=== PATIENT | male | born 1950 | race Caucasian/White ===

== ENCOUNTER → 2019-09-16 16:55 | Inpatient (IN) | payer OTHER, MEDICAID ==
[2019-09-05 20:35] VITALS: BP 137/78
[2019-09-05 20:37] VITALS: BP 137/78
[2019-09-05 20:38] VITALS: BP 137/78
[2019-09-05 21:04] LABS: FREE T4 1.19 ng/dL (0.76-1.46); FREE THYROXINE INDEX 3.1 ug/dL (1.4-4.5); T4(THYROXINE) 7.8 ug/dL (4.7-13.3)
[2019-09-05 21:13] LABS: T3 TOTAL 0.54 ng/mL
[2019-09-05 21:50] LABS: PLATELET COUNT 329 x10^3mcL (130-400); RED CELL DISTRIBUTION WIDTH 14.5 % (11.5-14.5)
[2019-09-05 21:51] LABS: BASOPHIL % 0 % (0-2)
[2019-09-05 22:41] LABS: PHOSPHOROUS 3.6 mg/dL (2.5-4.9)
[2019-09-05 23:05] LABS: CHOLESTEROL/HDL RATIO 3.1
[2019-09-05 23:18] LABS: microscopic required? YES; urine erythrocyte NEGATIVE (NEGATIVE)
[2019-09-06] VITALS (12 sets, daily range): BP systolic 85–188; BP diastolic 60–111
[2019-09-06 02:21] LABS: CALCIUM 8.6 mg/dL (8.5-10.1); CARBON DIOXIDE 21.1 mmol/L (21-32); CREATININE SERUM 1.6 mg/dL (0.7-1.3); POTASSIUM SERUM 3.9 mmol/L (3.5-5.1)
[2019-09-06 06:23] LABS: PLATELET COUNT 332 x10^3mcL (130-400); RED CELL DISTRIBUTION WIDTH 14.2 % (11.5-14.5)
[2019-09-06 06:33] LABS: BASOPHIL % 0 % (0-2)
[2019-09-06 07:05] LABS: CALCIUM 8.9 mg/dL (8.5-10.1); CARBON DIOXIDE 24.2 mmol/L (21-32); CREATININE SERUM 1.6 mg/dL (0.7-1.3); MAGNESIUM 2.1 mg/dL (1.8-2.4); PHOSPHOROUS 3.4 mg/dL (2.5-4.9); POTASSIUM SERUM 3.6 mmol/L (3.5-5.1)
[2019-09-06 13:55] LABS: CALCIUM 9.2 mg/dL (8.5-10.1); CARBON DIOXIDE 25.4 mmol/L (21-32); CREATININE SERUM 1.4 mg/dL (0.7-1.3); POTASSIUM SERUM 3.8 mmol/L (3.5-5.1)
[2019-09-06 14:06] LABS: PLATELET COUNT 419 x10^3mcL (130-400); RED CELL DISTRIBUTION WIDTH 14.7 % (11.5-14.5)
[2019-09-06 14:23] LABS: BAND NEUTROPHIL 1 % (0-10); BASOPHIL 0 % (0-2); MONOCYTE 7 % (0-7); SEGMENTED NEUTROPHILS 89 % (37-75); rbc morphology (normal/abnorm) ABNORMAL (NORMAL)
[2019-09-06 14:25] LABS: PLATELET MORPHOLOGY PLATELETS INCREASED
[2019-09-06 20:07] LABS: BASOPHIL % 0.5 % (0-2); PLATELET COUNT 278 x10^3mcL (130-400); RED CELL DISTRIBUTION WIDTH 14.5 % (11.5-14.5)
[2019-09-07] VITALS (17 sets, daily range): BP systolic 115–149; BP diastolic 49–76
[2019-09-07 05:33] LABS: BASOPHIL % 0.5 % (0-2); PLATELET COUNT 319 x10^3mcL (130-400); RED CELL DISTRIBUTION WIDTH 14.1 % (11.5-14.5)
[2019-09-07 06:17] LABS: BILIRUBIN TOTAL 0.93 mg/dL (0.20-1.00); CALCIUM 8.9 mg/dL (8.5-10.1); CARBON DIOXIDE 23.7 mmol/L (21-32); CREATININE SERUM 1.8 mg/dL (0.7-1.3); POTASSIUM SERUM 4.1 mmol/L (3.5-5.1); TOTAL PROTEIN, SERUM 6.7 g/dL (6.4-8.2)
[2019-09-07 06:23] LABS: ALBUMIN 2.3 g/dL (3.4-5.0)
[2019-09-08] VITALS (16 sets, daily range): BP systolic 134–165; BP diastolic 57–86
[2019-09-08 05:54] LABS: BASOPHIL % 0.3 % (0-2); PLATELET COUNT 297 x10^3mcL (130-400)
[2019-09-08 05:55] LABS: RED CELL DISTRIBUTION WIDTH 14.7 % (11.5-14.5)
[2019-09-08 06:21] LABS: CALCIUM 8.2 mg/dL (8.5-10.1); CARBON DIOXIDE 23.6 mmol/L (21-32); CREATININE SERUM 2.1 mg/dL (0.7-1.3); MAGNESIUM 2.5 mg/dL (1.8-2.4); PHOSPHOROUS 4.6 mg/dL (2.5-4.9); POTASSIUM SERUM 3.9 mmol/L (3.5-5.1)
[2019-09-09] VITALS (15 sets, daily range): BP systolic 122–146; BP diastolic 56–89
[2019-09-09 06:17] LABS: CALCIUM 7.5 mg/dL (8.5-10.1); CARBON DIOXIDE 28.9 mmol/L (21-32); CREATININE SERUM 2.1 mg/dL (0.7-1.3); MAGNESIUM 2.3 mg/dL (1.8-2.4); PHOSPHOROUS 3.6 mg/dL (2.5-4.9); POTASSIUM SERUM 3.4 mmol/L (3.5-5.1)
[2019-09-09 06:44] LABS: PLATELET COUNT 247 x10^3mcL (130-400); RED CELL DISTRIBUTION WIDTH 14.4 % (11.5-14.5)
[2019-09-09 06:50] LABS: BASOPHIL % 0 % (0-2)
[2019-09-10] VITALS (16 sets, daily range): BP systolic 124–166; BP diastolic 66–101
[2019-09-10 06:17] LABS: CARBON DIOXIDE 27.8 mmol/L (21-32); CREATININE SERUM 1.5 mg/dL (0.7-1.3); MAGNESIUM 2.3 mg/dL (1.8-2.4); POTASSIUM SERUM 3.4 mmol/L (3.5-5.1)
[2019-09-10 06:18] LABS: BASOPHIL % 0.2 % (0-2); PLATELET COUNT 275 x10^3mcL (130-400); RED CELL DISTRIBUTION WIDTH 14.2 % (11.5-14.5)
[2019-09-11] VITALS (17 sets, daily range): BP systolic 105–178; BP diastolic 58–88
[2019-09-11 04:54] LABS: BASOPHIL % 0.5 % (0-2); PLATELET COUNT 260 x10^3mcL (130-400); RED CELL DISTRIBUTION WIDTH 14.3 % (11.5-14.5)
[2019-09-11 05:08] LABS: CALCIUM 8.8 mg/dL (8.5-10.1); CARBON DIOXIDE 28.6 mmol/L (21-32); CREATININE SERUM 1.4 mg/dL (0.7-1.3); MAGNESIUM 2.4 mg/dL (1.8-2.4); PHOSPHOROUS 2.2 mg/dL (2.5-4.9); POTASSIUM SERUM 3.5 mmol/L (3.5-5.1)
[2019-09-12] VITALS (18 sets, daily range): BP systolic 104–155; BP diastolic 60–85; Ht 114.3 cm; Wt 70.1 kg
[2019-09-12 05:06] LABS: BASOPHIL % 0.5 % (0-2); PLATELET COUNT 208 x10^3mcL (130-400); RED CELL DISTRIBUTION WIDTH 14.1 % (11.5-14.5)
[2019-09-12 05:34] LABS: POTASSIUM SERUM 3.8 mmol/L (3.5-5.1)
[2019-09-12 05:35] LABS: CALCIUM 8.8 mg/dL (8.5-10.1); CARBON DIOXIDE 30.8 mmol/L (21-32); CREATININE SERUM 1.5 mg/dL (0.7-1.3); MAGNESIUM 2.4 mg/dL (1.8-2.4); PHOSPHOROUS 2.6 mg/dL (2.5-4.9)
[2019-09-13] VITALS (12 sets, daily range): BP systolic 91–148; BP diastolic 55–82
[2019-09-13 06:01] LABS: PLATELET COUNT 216 x10^3mcL (130-400); RED CELL DISTRIBUTION WIDTH 14.2 % (11.5-14.5)
[2019-09-13 06:06] LABS: BASOPHIL % 0 % (0-2)
[2019-09-13 06:15] LABS: CARBON DIOXIDE 30.5 mmol/L (21-32); POTASSIUM SERUM 3.4 mmol/L (3.5-5.1)
[2019-09-13 06:16] LABS: CALCIUM 8.4 mg/dL (8.5-10.1); CREATININE SERUM 1.6 mg/dL (0.7-1.3); MAGNESIUM 2.3 mg/dL (1.8-2.4)
[2019-09-14 03:25] VITALS: BP 134/80
[2019-09-14 06:18] LABS: PLATELET COUNT 237 x10^3mcL (130-400); RED CELL DISTRIBUTION WIDTH 14.3 % (11.5-14.5)
[2019-09-14 06:20] LABS: BASOPHIL % 0 % (0-2)
[2019-09-14 06:52] LABS: CARBON DIOXIDE 32.4 mmol/L (21-32); CREATININE SERUM 1.5 mg/dL (0.7-1.3); POTASSIUM SERUM 3.7 mmol/L (3.5-5.1)
[2019-09-14 06:53] LABS: CALCIUM 8.6 mg/dL (8.5-10.1); MAGNESIUM 2.3 mg/dL (1.8-2.4)
[2019-09-14 08:00] VITALS: BP 126/69
[2019-09-14 12:00] VITALS: BP 145/54
[2019-09-14 17:16] VITALS: BP 147/54
[2019-09-14 21:54] VITALS: BP 141/63
[2019-09-15 05:04] VITALS: BP 129/57
[2019-09-15 07:58] LABS: BASOPHIL % 0.1 % (0-2); PLATELET COUNT 254 x10^3mcL (130-400); RED CELL DISTRIBUTION WIDTH 14.1 % (11.5-14.5)
[2019-09-15 08:05] LABS: CALCIUM 8.9 mg/dL (8.5-10.1); CARBON DIOXIDE 27.9 mmol/L (21-32); CREATININE SERUM 1.5 mg/dL (0.7-1.3); MAGNESIUM 2.5 mg/dL (1.8-2.4); PHOSPHOROUS 4.4 mg/dL (2.5-4.9); POTASSIUM SERUM 3.9 mmol/L (3.5-5.1)
[2019-09-15 08:49] VITALS: BP 106/60
[2019-09-15 13:08] VITALS: BP 132/39
[2019-09-15 17:30] VITALS: BP 139/70
[2019-09-15 21:06] VITALS: BP 149/73
[~2019-09-16] VITALS: Ht 114.3 cm; Wt 70.1 kg
[2019-09-16 05:39] VITALS: BP 118/55
[2019-09-16 06:50] LABS: BASOPHIL % 0.1 % (0-2); PLATELET COUNT 261 x10^3mcL (130-400); RED CELL DISTRIBUTION WIDTH 13.7 % (11.5-14.5)
[2019-09-16 08:31] VITALS: BP 145/61
[2019-09-16 09:09] LABS: CALCIUM 8.8 mg/dL (8.5-10.1); CARBON DIOXIDE 32.4 mmol/L (21-32); CREATININE SERUM 1.5 mg/dL (0.7-1.3); MAGNESIUM 2.6 mg/dL (1.8-2.4); PHOSPHOROUS 2.8 mg/dL (2.5-4.9); POTASSIUM SERUM 3.2 mmol/L (3.5-5.1)
[2019-09-16 12:38] VITALS: BP 143/50
[2019-09-16 16:05] VITALS: BP 143/50
[~2019-09-16 16:55] MED LIST: APR25 PO; BAY PO; CLOPIDOGREL75 M1 PO; CORE25 PO; CYCLOSPORINE25 M2 PO; GLIPIZIDE XL10 M1 PO; HORIZANT300 MG PO; ISO10 PO; L40 PO; NOR5 PO; OMEPRAZOLE40 M1 PO; PRA20 PO; PRE20 PO
== END | DRG 207 ==
LOC: DS 09-05 18:20 → DU 09-05 18:20 → IC 09-05 18:20 → DU 09-05 18:47 → IC 09-06 09:12 → DS 09-06 10:00 → IC 09-06 13:05 → DU 09-14 15:00 → MU 15:37
PROVIDERS: Internal Medicine; Internal Medicine Geriatric Medicine; ADMIT Family Medicine
PROC: 0BH17EZ Insertion of Endotracheal Airway into Trachea, Via Natural or Artificial Opening (ICD-10-PCS; 2019-09-06)
PROC: 4A023N8 Measurement of Cardiac Sampling and Pressure, Bilateral, Percutaneous Approach (ICD-10-PCS; 2019-09-06)
PROC: B212YZZ Fluoroscopy of Single Coronary Artery Bypass Graft using Other Contrast (ICD-10-PCS; 2019-09-06)
PROC: B211YZZ Fluoroscopy of Multiple Coronary Arteries using Other Contrast (ICD-10-PCS; 2019-09-06)
PROC: 5A1955Z Respiratory Ventilation, Greater than 96 Consecutive Hours (ICD-10-PCS; principal; 2019-09-06 07:15)
DX: J96.01 Acute respiratory failure with hypoxia (principal); I21.4 Non-ST elevation (NSTEMI) myocardial infarction; I50.43 Acute on chronic combined systolic (congestive) and diastolic (congestive) heart failure; J69.0 Pneumonitis due to inhalation of food and vomit; I13.0 Hypertensive heart and chronic kidney disease with heart failure and stage 1 through stage 4 chronic kidney disease, or unspecified chronic kidney disease; Z94.0 Kidney transplant status; Z68.43 Body mass index [BMI] 50.0-59.9, adult; N18.9 Chronic kidney disease, unspecified; E11.22 Type 2 diabetes mellitus with diabetic chronic kidney disease; E66.01 Morbid (severe) obesity due to excess calories; I25.10 Atherosclerotic heart disease of native coronary artery without angina pectoris; Z89.512 Acquired absence of left leg below knee; Z89.511 Acquired absence of right leg below knee; Z95.1 Presence of aortocoronary bypass graft; Z85.828 Personal history of other malignant neoplasm of skin
CPT/HCPCS: CLHCL; 36600; 76937; 82962; 83880; 84439; 94150; 97110-GP; A4628; C1725; C1760; C1769; C1874; C1887; C9113; G0378; J0132; J0360; J0696; J1644; J1815; J1940; J2001; J2250; J2405; J2543; J2704; J2920; J3010; J3370; J3490; J7030; J7040; J7050; J7512; J7515; J7620; J7626; P9047; Q0092; Q9967